=== PATIENT | female | born 1995 | race Caucasian/White ===

== ENCOUNTER 2018-10-01 00:21 | Outpatient (CLI) | payer OTHER ==
[~2018-10-01] VITALS: Ht 162.6 cm; Wt 70.0 kg
[2018-10-01 01:05] VITALS: BP 125/81
== END 2018-10-01 03:10 | disposition home or self-care (01) ==
LOC: LDOP 00:21
PROVIDERS: ATTEND Student in an Organized Health Care Education/Training Program
DX: O62.9 Abnormality of forces of labor, unspecified (principal); Z3A.39 39 weeks gestation of pregnancy
CPT/HCPCS: 59025; 99211; G0463

== ENCOUNTER 2018-10-01 06:02 | Inpatient (IN) | payer OTHER ==
[~2018-10-01] VITALS: Ht 160 cm; Wt 70.0 kg
[2018-10-02 12:06] VITALS: BP 101/68
== END 2018-10-02 15:04 | disposition home or self-care (01) | DRG 807 ==
LOC: LDOP 06:02 → LDIP 06:11 → 2NW 17:22
PROVIDERS: ADMIT Student in an Organized Health Care Education/Training Program; ATTEND Student in an Organized Health Care Education/Training Program
PROC: 10E0XZZ Delivery of Products of Conception, External Approach (ICD-10-PCS; principal; 2018-10-01)
PROC: 0HQ9XZZ Repair Perineum Skin, External Approach (ICD-10-PCS; 2018-10-01)
PROC: 10H07YZ Insertion of Other Device into Products of Conception, Via Natural or Artificial Opening (ICD-10-PCS; 2018-10-01)
PROC: 3E0R3BZ Introduction of Anesthetic Agent into Spinal Canal, Percutaneous Approach (ICD-10-PCS; 2018-10-01)
PROC: 00HU33Z Insertion of Infusion Device into Spinal Canal, Percutaneous Approach (ICD-10-PCS; 2018-10-01)
DX: O70.0 First degree perineal laceration during delivery (principal); Z37.0 Single live birth; Z3A.39 39 weeks gestation of pregnancy
CPT/HCPCS: 36415; J3490; 85025; 86850; 86900; G0378; J3010; J7120